=== PATIENT | female | born 1980 | race African-American/Black ===

== ENCOUNTER 2022-03-30 17:31 | Emergency (ER) | payer BC ==
[~2022-03-30] VITALS: Ht 172.7 cm; Wt 68.0 kg
[2022-03-30 17:44] VITALS: BP 128/84
== END 2022-03-31 00:31 | disposition left against medical advice (07) ==
LOC: ER 17:31
DX: Z53.21 Procedure and treatment not carried out due to patient leaving prior to being seen by health care provider (principal)